=== PATIENT | female | born 1995 | race Two or more races ===

== ENCOUNTER 2016-06-20 12:44 | Inpatient (IN) | payer OTHER ==
[~2016-06-20] VITALS: Ht 149.9 cm; Wt 50.7 kg
[~2016-06-20 12:44] MED LIST: AUGMENTIN875 MG PO; AURALGAN14.8 ML LEFT EAR; CIPRO HC OTIC S10 ML LEFT EAR; ENDOCET 5-3251 EACH PO; FLEXERIL5 MG PO; IBUPROFEN800 MG PO; MACROBID100 MG PO; METHADONE 22 MG/1 ML PO; MIGRAINE RELIE1 EAC2 PO; MOTRIN600 MG PO; NAPROSYN500 MG PO; PRENATAL TABLE1 EAC3 PO; PRENATAL1 EACH; TYLENOL W/COD1 COMBO PO; TYLENOL WITH C1 EACH PO; ULTRAM50 MG PO; ZANTAC150 MG PO
[2016-06-20 13:24] LABS: HEMATOCRIT 35.5 % (36.0-46.0); MCH 27.6 PG (29.0-34.0); MCHC 34.1 G/DL (30.0-36.0); MCV 80.9 FL (83-99); MEAN PLAT.VOLUME 10.7 uM^3 (9.5-12.4); PLATELET COUNT 259 K/uL (156-360); RBC DIS.WIDTH-CV 13.4 % (11.8-14.6); RBC DIS.WIDTH-SD 38.7 % (39-53); RED BLOOD COUNT 4.39 M/uL (3.80-5.20); WHITE BLOOD COUNT 24.8 K/uL (4.1-10.2)
[2016-06-20 13:38] LABS: CHLORIDE 104 mEq/L (99-109); POTASSIUM 3.6 mEq/L (3.7-5.4); SODIUM 136 mEq/L (136-147)
[2016-06-20 13:40] LABS: GLUCOSE 118 mg/dL (70-99)
[2016-06-20 13:41] LABS: ANION GAP 9 MEQ/L (2-14)
[2016-06-20 13:42] LABS: TOTAL BILIRUBIN 0.5 mg/dL (0.0-1.0)
[2016-06-20 13:43] LABS: ALKALINE PHOSPHATASE 121 IU/L (3-129)
[2016-06-20 13:44] LABS: GFR ESTIMATE (CALCULATED) > 59 mL/min/
[2016-06-20 13:45] LABS: UREA NITROGEN (BUN) 8 mg/dL (9-23)
[2016-06-20 13:53] LABS: QUANTITATIVE HCG < 4.0 MIU/ML
[2016-06-20 14:06] LABS: ADD MIUA? YES; BILIRUBIN NEGATIVE; BLOOD NEGATIVE; COLOR YELLOW ((YELLOW)); GLUCOSE (STRIP) NEGATIVE; KETONES NEGATIVE; LEUKOCYTES TRACE; NITRITE NEGATIVE; PH, URINE 7.5 (5-8); PROTEIN (STRIP) TRACE; SPECIFIC GRAVITY 1.016 (1.000-1.030)
[2016-06-20 14:20] LABS: AMYLASE 16 IU/L (1-118)
[2016-06-20 14:28] LABS: LIPASE 7 U/L (1.0-51.0)
[2016-06-20 14:32] LABS: BACTERIA RARE; CASTS NONE SEEN /LPF; CRYSTALS NONE SEEN; EPITHELIAL CELLS NONE SEEN; MUCUS NONE SEEN; RED BLOOD CELLS NONE SEEN /HPF (0-5); UCUL ADDED? NO; WHITE BLOOD CELLS RARE /HPF (0-5)
[2016-06-20] MEDS ORDERED: QUETIAPINE FUMA25 MG PO (15:10)
[2016-06-20] MEDS ORDERED: BUSPAR15 MG PO (15:10)
[2016-06-20] MEDS ORDERED: BACTRIM,SEPT1 TABLET PO (15:11)
[2016-06-20] MEDS ORDERED: DEPO (15:11)
[2016-06-20] MEDS ORDERED: DEPO-PROVER150 MG/ML IM (17:00)
[2016-06-20 19:55] VITALS: BP 105/58
[2016-06-20 23:26] VITALS: BP 108/53
[2016-06-21 03:30] VITALS: BP 90/59
[2016-06-21 07:25] LABS: EOSINOPHIL COUNT 0.1 K/uL (0-0.3); HEMATOCRIT 28.9 % (36.0-46.0); IMMATURE GRANULOCYTE (%) 0.2 % (0.0-0.7); LYMPHOCYTE COUNT 3.2 K/uL (1.0-2.8); MCH 27.5 PG (29.0-34.0); MCHC 33.6 G/DL (30.0-36.0); MCV 81.9 FL (83-99); MEAN PLAT.VOLUME 11.3 uM^3 (9.5-12.4); MONOCYTE (%) 9.2 % (3-12); MONOCYTE COUNT 1.3 K/uL (0-0.8); NEUTROPHIL (%) 67.2 % (45-76); NEUTROPHIL COUNT 9.6 K/uL (1.8-6.4); PLATELET COUNT 215 K/uL (156-360); RBC DIS.WIDTH-CV 13.8 % (11.8-14.6); RBC DIS.WIDTH-SD 41.6 % (39-53); RED BLOOD COUNT 3.53 M/uL (3.80-5.20)
[2016-06-21 07:26] LABS: WHITE BLOOD COUNT 14.2 K/uL (4.1-10.2)
[2016-06-21 07:42] LABS: ANION GAP 8 MEQ/L (2-14); CHLORIDE 114 MEQ/L (99-109); GFR ESTIMATE (CALCULATED) > 59 mL/min/; GLUCOSE 103 mg/dL (70-99); POTASSIUM 4.1 MEQ/L (3.7-5.4); SAMPLE HEMOLYSIS CHECK 0; SAMPLE ICTERIC CHECK 0; SAMPLE LIPEMIA CHECK 0; SODIUM 142 MEQ/L (136-147); UREA NITROGEN (BUN) 9 mg/dL (9-23)
[2016-06-21 08:15] VITALS: BP 95/51
[2016-06-21 11:54] VITALS: BP 103/58
[2016-06-22] MEDS ORDERED: TYLENOL EXTRA500 MG PO (21:22)
[2016-06-22] MEDS ORDERED: VRAYLAR1.5 MG PO (21:22)
== END 2016-06-21 13:30 | disposition left against medical advice (07) | DRG 690 ==
LOC: EME 12:44 → EDOF 18:50 → 2EAST 19:57
PROVIDERS: Internal Medicine
DX: N12 Tubulo-interstitial nephritis, not specified as acute or chronic (principal); F32.9 Major depressive disorder, single episode, unspecified; F41.1 Generalized anxiety disorder; F17.210 Nicotine dependence, cigarettes, uncomplicated; M84.9 Disorder of continuity of bone, unspecified
CPT/HCPCS: 74177; 80048; 80053; 81003; 82150; 83605; 83690; 84702; 85025; 85027; 87040; 99281; 99285; J0696; J1650; J2270; J2405; J3260; J7030; J7050

== ENCOUNTER 2016-06-22 19:20 | Inpatient (IN) | payer OTHER ==
[~2016-06-22] VITALS: Ht 149.9 cm; Wt 51.3 kg
[~2016-06-22 19:20] MED LIST changes: +BACTRIM,SEPT1 TABLET PO; +BUSPAR15 MG PO; +DEPO; +DEPO-PROVER150 MG/ML IM; +QUETIAPINE FUMA25 MG PO
[2016-06-22 21:21] LABS: EOSINOPHIL COUNT 0.1 K/uL (0-0.3); HEMATOCRIT 34.5 % (36.0-46.0); IMMATURE GRANULOCYTE (%) 0.8 % (0.0-0.7); MCH 27.2 PG (29.0-34.0); MCHC 34.2 G/DL (30.0-36.0); MCV 79.5 FL (83-99); MEAN PLAT.VOLUME 11.2 uM^3 (9.5-12.4); MONOCYTE (%) 11.4 % (3-12); MONOCYTE COUNT 1.4 K/uL (0-0.8); PLATELET COUNT 278 K/uL (156-360); RED BLOOD COUNT 4.34 M/uL (3.80-5.20); WHITE BLOOD COUNT 12.6 K/uL (4.1-10.2)
[2016-06-22] MEDS ORDERED: VRAYLAR1.5 MG PO (21:22)
[2016-06-22] MEDS ORDERED: TYLENOL EXTRA500 MG PO (21:22)
[2016-06-22 22:10] LABS: CHLORIDE 98 mEq/L (99-109); POTASSIUM 3.7 mEq/L (3.7-5.4); SODIUM 138 mEq/L (136-147)
[2016-06-22 22:13] LABS: GLUCOSE 87 mg/dL (70-99)
[2016-06-22 22:14] LABS: ANION GAP 14 MEQ/L (2-14)
[2016-06-22 22:16] LABS: GFR ESTIMATE (CALCULATED) > 59 mL/min/
[2016-06-22 22:17] LABS: ALKALINE PHOSPHATASE 165 IU/L (3-129); TOTAL BILIRUBIN 0.7 mg/dL (0.0-1.0); UREA NITROGEN (BUN) 8 mg/dL (9-23)
[2016-06-22 22:25] LABS: QUANTITATIVE HCG < 4.0 MIU/ML
[2016-06-23 01:12] VITALS: BP 126/78
[2016-06-23 07:55] VITALS: BP 104/58
[2016-06-23 14:43] LABS: ADD MIUA? NO; BILIRUBIN NEGATIVE; BLOOD NEGATIVE; COLOR YELLOW ((YELLOW)); GLUCOSE (STRIP) NEGATIVE; KETONES NEGATIVE; LEUKOCYTES NEGATIVE; NITRITE NEGATIVE; PH, URINE 7.5 (5-8); PROTEIN (STRIP) NEGATIVE; SPECIFIC GRAVITY 1.005 (1.000-1.030); UCUL ADDED? NO
[2016-06-23 14:54] LABS: AMPHETAMINES QUANT VALUE 0 NG/ML; BARBITUATES QUANT VALUE 0 NG/ML; BENZODIAZEPINES QUANT VALUE 0 NG/ML; BENZODIAZEPINES, URINE SCREEN Negative (200 ng/mL); MARIJUANA QUANT VALUE 0 NG/ML; PHENCYCLIDINE QUANT VALUE 0 NG/ML
[2016-06-23 15:28] VITALS: BP 97/56
[2016-06-23 23:07] VITALS: BP 105/56
[2016-06-24 06:36] LABS: HEMATOCRIT 34.4 % (36.0-46.0); MCH 26.7 PG (29.0-34.0); MCHC 32.8 G/DL (30.0-36.0); MCV 81.3 FL (83-99); RBC DIS.WIDTH-CV 14.2 % (11.8-14.6); RBC DIS.WIDTH-SD 42.5 % (39-53); RED BLOOD COUNT 4.23 M/uL (3.80-5.20); WHITE BLOOD COUNT 11.7 K/uL (4.1-10.2)
[2016-06-24 06:48] LABS: MEAN PLAT.VOLUME 10.1 uM^3 (9.5-12.4); PLATELET COUNT 390 K/uL (156-360)
[2016-06-24 08:44] VITALS: BP 110/57
[2016-06-24 14:59] VITALS: BP 110/63
[2016-06-24] MEDS ORDERED: KEFLEX500 MG PO (16:24)
== END 2016-06-24 17:50 | disposition home or self-care (01) | DRG 690 ==
LOC: EME 19:20 → EDOF 23:48 → 5EAST 23:48
PROVIDERS: Emergency Medicine; Internal Medicine
DX: N10 Acute pyelonephritis (principal); F11.20 Opioid dependence, uncomplicated; F41.9 Anxiety disorder, unspecified; F31.9 Bipolar disorder, unspecified; Z91.19 Patient's noncompliance with other medical treatment and regimen; F17.210 Nicotine dependence, cigarettes, uncomplicated
CPT/HCPCS: 80053; 81003; 84702; 85025; 85027; 99281; 99285; J0696; J1650; J2270; J3010; J7030; J7050

== ENCOUNTER 2017-08-09 09:39 | Emergency (ER) | payer OTHER ==
[~2017-08-09] VITALS: Ht 149.9 cm; Wt 67.0 kg
[~2017-08-09 09:39] MED LIST changes: +KEFLEX500 MG PO; +TYLENOL EXTRA500 MG PO; +VRAYLAR1.5 MG PO
[2017-08-09] MEDS ORDERED: FLEXERIL10 MG PO (10:57)
[2017-08-09] MEDS ORDERED: MOTRIN800 MG PO (10:57)
[2017-08-09] MEDS ORDERED: LIDODERM 5% P1 PATCH TD (10:57)
[2017-08-09 11:26] VITALS: BP 111/74
== END 2017-08-09 11:27 | disposition home or self-care (01) ==
LOC: EME 09:39
DX: S16.1XXA Strain of muscle, fascia and tendon at neck level, initial encounter (principal); M62.838 Other muscle spasm; R51 Headache; X50.9XXA Other and unspecified overexertion or strenuous movements or postures, initial encounter; F17.200 Nicotine dependence, unspecified, uncomplicated; Z79.891 Long term (current) use of opiate analgesic
CPT/HCPCS: 99281; 99284; J1885

== ENCOUNTER → 2017-10-22 | Outpatient (CLI) | payer OTHER ==
[~2017-10-22] MED LIST changes: +FLEXERIL10 MG PO; +LIDODERM 5% P1 PATCH TD; +MOTRIN800 MG PO
== END | disposition home or self-care (01) ==
LOC: CDC 08:13
DX: F31.81 Bipolar II disorder (principal); F11.20 Opioid dependence, uncomplicated
CPT/HCPCS: 93000